=== PATIENT | female | born 1965 | race Caucasian/White ===

== ENCOUNTER → 2016-10-10 | Outpatient (CLI) | payer OTHER ==
--- NOTE | 2016-10-10 10:31 | WWHP ---
DATE OF SERVICE: 10/10/2016 CHIEF COMPLAINT: The patient is here for her routine gynecologic exam. HPI: This is a 51-year-old G9, P4-0-5-4 with an LMP of 06/2016. She states her periods have been infrequent this year and has only had 3 periods this year. She has been having hot flashes, especially during the last 2 months and they tend to occur about every 20 minutes and she can have hot flashes at night as well. She says they are not very big problem at this time. Her is status post vasectomy. PAST MEDICAL HISTORY: Hypothyroidism. MEDICATIONS: Synthroid 75 mcg daily. Allergies to BACTRIM and KEFLEX. PAST SURGICAL HISTORY: Colonoscopy 2012 and cold knife conization of the cervix by myself in 1999. 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 SOCIAL HISTORY: She denies tobacco and drug use and has 0 to 1 alcoholic drink per year. 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 FAMILY HISTORY: Son has childhood colonic polyposis. REVIEW OF SYSTEMS: She denies respiratory, cardiac, or GI problems. Weight has been stable. PHYSICAL EXAM: Blood pressure 123/80. Height 5 feet 2 inches. Weight was refused by the patient. The patient states she weighs 132 pounds. Temperature 97.7, pulse 70. This is a well-developed, well-nourished white female who is alert and oriented x3 in no acute distress. HEENT is within normal limits. NECK: Supple without mass or thyromegaly. CHEST AND LUNGS: Clear to auscultation. HEART: Regular rate and rhythm. Breasts are without mass or discharge. Axillary exam is negative for adenopathy. BACK: Negative for CVA tenderness. ABDOMEN: Soft, nontender, without palpable masses. PELVIC EXAM: Normal external genitalia without significant atrophy. Cervix is consistent with previous conization and is slightly shortened and is somewhat stenotic upon doing the Pap smear. There is no unusual discharge. Vagina appears normal. There is no evidence of prolapse. The uterus is midposition, nongravid size and nontender. There are no palpable adnexal masses or tenderness. Rectovaginal exam is negative for mass or tenderness and is negative for occult blood. EXTREMITIES: Nontender. IMPRESSION: A 51-year-old perimenopausal female with oligomenorrhea and intermittent vasomotor symptoms with normal gynecologic exam. PLAN: 1. Pap smear was performed. 2. Self breast examination was discussed. 3. Mammogram was recommended, but was refused by the patient. She states she will consider doing this in one year. 4. Osteoporosis prevention was discussed. 5. The patient will keep track of her menses and call if she is having problems or if vasomotor symptoms are becoming severe. 6. I have recommended colonoscopy in one year since Dr. Rodriguez had recommended doing the colonoscopy after 5 years. 7. She will return in one year.
== END | disposition home or self-care (01) ==
LOC: WWCWWP 08:34
PROVIDERS: ATTEND Obstetrics & Gynecology
DX: Z01.419 Encounter for gynecological examination (general) (routine) without abnormal findings (principal)

== ENCOUNTER → 2017-09-25 | Outpatient (CLI) | payer OTHER ==
--- NOTE | 2017-09-25 09:27 | WWHP ---
[facility] - HISTORY AND PHYSICAL DATE OF SERVICE: 09/25/2017 CHIEF COMPLAINT: The patient is here for her routine gynecologic exam. HPI: This is a 52-year-old, G9, P4-0-5-4 with an LMP of 08/2016. She states it has been 1 full year of no vaginal bleeding. She does have mild hot flashes, which are not very bothersome and are well controlled. Her is status post vasectomy. She is without gynecologic complaints. PAST MEDICAL HISTORY: Hypothyroidism. MEDICATIONS: Synthroid 75 mcg daily. ALLERGIES: Allergies to BACTRIM and KEFLEX. PAST SURGICAL HISTORY: Colonoscopy 2012 and cold knife conization of the cervix in 1999. 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 She had a cold knife conization of her cervix in 1999 for cervical dysplasia. She has no history of STDs. SOCIAL HISTORY: She denies tobacco, alcohol, and drug use. 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 FAMILY HISTORY: Son has childhood colonic polyposis. REVIEW OF SYSTEMS: She denies respiratory, cardiac or GI problems. PHYSICAL EXAM: Blood pressure 107/76, height 5 feet 2 inches, weight was refused by the patient, temperature 97.5, pulse 74. This is a well-developed, well-nourished, white female, who is alert and oriented x3, in no acute distress. HEENT is within normal limits. NECK: Supple without mass or thyromegaly. CHEST AND LUNGS: Clear to auscultation. HEART: Regular rate and rhythm. Breasts are without mass or discharge. Axillary exam is negative for adenopathy. BACK: Negative for CVA tenderness. ABDOMEN: Soft, nontender, without palpable masses. PELVIC EXAM: Normal external genitalia without significant atrophy. Cervix is consistent with previous conization and is without lesions. The cervix and vagina reveals mild atrophy. There is no evidence of prolapse. The uterus is mid position, nongravid size and nontender. There are no palpable adnexal masses or tenderness. Rectovaginal exam is negative for mass or tenderness and is negative for occult blood. EXTREMITIES: Nontender. IMPRESSION: 1. A 52-year-old menopausal female who has been amenorrheic for 1 full year. 2. Normal gynecologic exam. 3. Mild vasomotor symptoms. PLAN: 1. Pap smear was deferred since she had a normal one last year. 2. Self-breast examination was discussed. 3. Screening mammogram will be done today. 4. Osteoporosis prevention was discussed. 5. She was instructed to call if she has any vaginal bleeding since this will now be considered abnormal after the menopause. 6. She will return in 1 year. MMDIAMONDL / LANDON: [id number] /
--- NOTE | 2017-09-26 13:15 | MM ---
Reason for exam: screening (asymptomatic). History: Patient is postmenopausal and had first child at age 29. Physical Findings: A clinical breast exam by your physician is recommended on an annual basis and results should be correlated with mammographic findings. MG Screening Mammo w CAD Bilateral CC and MLO view(s) were taken. The breast tissue is heterogeneously dense. This may lower the sensitivity of mammography. Focal asymmetry left middle depth upper aspect. ASSESSMENT: Incomplete: need additional imaging evaluation, BI-RAD 0 RECOMMENDATION: Special view mammogram of the left breast. If lesion persists on supplemental views, image directed ultrasound is recommended. [facility] will attempt to contact patient to return for supplemental views and ultrasound if indicated.
== END | disposition home or self-care (01) ==
LOC: WWCWWP 07:57
PROVIDERS: ATTEND Obstetrics & Gynecology
DX: Z12.31 Encounter for screening mammogram for malignant neoplasm of breast (principal)
CPT/HCPCS: 77067

== ENCOUNTER → 2017-10-03 | Outpatient (CLI) | payer OTHER ==
--- NOTE | 2017-10-03 08:45 | MM ---
Reason for exam: additional evaluation requested from abnormal screening. Last mammogram was performed less than 1 month ago. History: Patient is postmenopausal and had first child at age 29. Family history of breast cancer in maternal aunt at age 85. Took hormonal contraceptives. Physical Findings: Nurse did not find any significant physical abnormalities on exam. MG Work Up Mamm w CAD LT Spot compression MLO and ML view(s) were taken of the left breast. Prior study comparison: September 25, 2017, bilateral MG screening mammo w CAD. There is no discrete abnormality. These results were verbally communicated with the patient and result sheet given to the patient on 10/03/17. ASSESSMENT: Benign, BI-RAD 2 RECOMMENDATION: Return to routine screening mammogram schedule for both breasts.
== END | disposition home or self-care (01) ==
LOC: RADMAMWWP 07:47
PROVIDERS: ATTEND Obstetrics & Gynecology
DX: R92.8 Other abnormal and inconclusive findings on diagnostic imaging of breast (principal)
CPT/HCPCS: 77065

== ENCOUNTER → 2018-10-15 | Outpatient (CLI) | payer SELFPAY ==
[2018-10-15 11:45] VITALS: BP 121/76; PULSE 56; RESP 18; TEMP 97.6; BMI 23.8
--- NOTE | 2018-10-15 13:25 | P.HPOB ---
History of Present Illness H&P Date: 10/15/18 Chief Complaint: The patient is here for her routine gynecologic exam. This is a 53-year-old with an LMP of August 2016. The patient states she had a minimal amount of vaginal spotting one day in June 2018. She has not had any other postmenopausal bleeding. She states her hot flashes have been gradually improving and are not very bothersome. 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 She states her issues with urinary urge incontinence is improved by voiding more frequently. Review of Systems The patient's weight has been stable over the last 2 years. She denies res piratory, cardiac, or G.I. problems. Past Medical History Past Medical History: Thyroid Disorder Additional Past Medical History / Comment(s): Hypothyroidism. 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 She has had a cold knife conization of the cervix in 2003 dysplasia. History of Any Multi-Drug Resistant Organisms: None Reported Past Surgical History: No Surgical Hx Reported Additional Past Surgical History / Comment(s): Conization of the cervix in 1999. Colonoscopy 2012. 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 - Past Family History Son(s) Additional Family Medical History / Comment(s): Childhood colonic polyposis. Medications and Allergies Home Medications Medication Instructions Recorded Confirmed Type Magnesium 200 mg PO DAILY 10/15/18 10/15/18 History Thyroid,Pork [[place] Thyroid] 60 mg PO DAILY 10/15/18 10/15/18 History Allergies Allergy/AdvReac Type Severity Reaction Status Date / Time sulfamethoxazole AdvReac Severe renal Unverified 10/15/18 11:37 [From Bactrim] failure trimethoprim [From Bactrim] AdvReac Severe renal Unverified 10/15/18 11:37 failure cephalexin [From Keflex] AdvReac Anaphylaxis Unverified 10/15/18 11:36 Exam Vital Signs Temp Pulse Resp BP Pulse Ox 10/15/18 11:40 97.6 F 56 L 18 121/76 96 Intake and Output 10/14/18 10/15/18 10/15/18 22:59 06:59 14:59 Other: Weight 58.967 kg Height 5'2", weight 130 pounds, BMI 23.8. This is a well-developed well-nourished white female who is alert and oriented times 3 in no acute distress. HEENT: Within normal limits. NECK: Supple without mass or thyromegaly. CHEST AND LUNGS: Clear to auscultation. HEART: Regular rate and rhythm. BREASTS: Are without mass or discharge. AXILLARY EXAM: Negative for adenopathy. BACK: Negative for CVA tenderness. ABDOMEN: Soft, nontender, without palpable masses. PELVIC EXAM: Normal external genitalia with minimal atrophy. Cervix and vagina appear normal with mild atrophy. The service is slightly stenotic. There is no unusual discharge. There is no evidence of prolapse. The uterus is midposition, nongravid size and nontender. There are no palpable adnexal masses or tenderness. RECTAL EXAM: rectovaginal exam is negative for mass or tenderness and is negative for occult blood. EXTREMITIES: Nontender. IMPRESSION: 1. 53-year-old menopausal female with normal gynecologic exam. 2. Small brief postmenopausal bleeding in 06/2018. PLAN: 1. Pap smear was performed. 2. Self breast awareness was discussed with the patient. 3. Screening mammogram was recommended. The patient is declining this at this time. She states she would prefer to have it done next year. 4. I have recommended pelvic ultrasound because of the small postmenopausal bleeding. If the endometrial thickness is normal, this will be followed conservatively. She states she will have scheduled at [facility]. She was also instructed to call if she is having recurrent postmenopausal bleeding. 5. I have recommended that she look into a screening colonoscopy since it has been more than 5 years since her last one and because of her son's history of familial polyposis. 6.She was advised to return in one year for her annual well woman exam and PRN.
== END ==
LOC: WWCWWP 11:08
PROVIDERS: ATTEND Obstetrics & Gynecology
DX: Z53.9 Procedure and treatment not carried out, unspecified reason (principal)

== ENCOUNTER → 2020-11-15 | Outpatient (CLI) | payer SELFPAY ==
[2020-11-15 08:01] VITALS: BP 111/75; PULSE 69; RESP 18; TEMP 97.6
--- NOTE | 2020-11-15 08:54 | P.HPOB ---
History of Present Illness H&P Date: 11/15/20 Chief Complaint: The patient is here for routine gynecologic exam. This is a 55-year-old 054 with an LMP of 2017. The patient had one episode of light spotting in 2018 and denies any menopausal bleeding since then. A pelvic ultrasound was recommended after the episode of spotting in 2018, but the patient did not have this done. She is without gynecologic complaints. The patient states she was diagnosed with COVID on 10/21/2020. She states she was not hospitalized, but had a rough time with the Covid. She states she still feels quite weak, feels a bit shaky, and has some difficulty speaking quickly. She had spoken with her primary care physician when she was diagnosed with the Covid, but has not had follow-up with her PCP since then. She is back to work. Review of Systems She has lost about 6 pounds over the past 2 years. She denies respiratory or GI problems. Cardiac: At night she wonders if she notices skipped heartbeats. General: See the HPI. Past Medical History Past Medical History: Thyroid Disorder Additional Past Medical History / Comment(s): Hypothyroidism. 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 She has had a cold knife conization of the cervix in 2003 for dysplasia. History of Any Multi-Drug Resistant Organisms: None Reported Past Surgical History: No Surgical Hx Reported Additional Past Surgical History / Comment(s): Conization of the cervix in 1999. Colonoscopy 2012. 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 - Past Family History Son(s) Additional Family Medical History / Comment(s): Childhood colonic polyposis. Medications and Allergies Home Medications Medication Instructions Recorded Confirmed Type Magnesium 200 mg PO DAILY 10/15/18 11/15/20 History Thyroid,Pork [[place] Thyroid] 60 mg PO DAILY 10/15/18 11/15/20 History Allergies Allergy/AdvReac Type Severity Reaction Status Date / Time sulfamethoxazole AdvReac Severe renal Unverified 11/15/20 07:53 [From Bactrim] failure trimethoprim [From Bactrim] AdvReac Severe renal Unverified 11/15/20 07:53 failure cephalexin [From Keflex] AdvReac Anaphylaxis Unverified 11/15/20 07:53 Exam Vital Signs Temp Pulse Resp BP Pulse Ox 11/15/20 07:54 97.6 F 69 18 111/75 98 Intake and Output 11/14/20 11/15/20 11/15/20 22:59 06:59 14:59 Other: Weight 56.245 kg Height 5 feet 3 inches, weight 124 pounds, BMI 22.0. This is a well-developed well-nourished white female who is alert and oriented times 3 in no acute distress. She seems to be speaking slightly slower than normal, but is speaking in complete sentences and is oriented. HEENT: Within normal limits. NECK: Supple without mass or thyromegaly. CHEST AND LUNGS: Clear to auscultation. HEART: Regular rate and rhythm. BREASTS: Are without mass or discharge. There is slight breast tenderness bilaterally. AXILLARY EXAM: Negative for adenopathy. BACK: Negative for CVA tenderness. ABDOMEN: Soft, nontender, without palpable masses. PELVIC EXAM: Normal external genitalia with mild atrophy. Cervix is consistent with previous conization and minimal atrophy without lesions. Vagina also reveals minimal atrophy without lesions. There is no unusual discharge. There is no evidence of prolapse. The uterus is midposition, nongravid size and nontender. There are no palpable adnexal masses or tenderness. RECTAL EXAM: Rectovaginal exam is negative for mass or tenderness and is negative for occult blood. EXTREMITIES: Nontender. IMPRESSION: 1. 55-year-old menopausal female with normal gynecologic exam. 2. The patient is having nonspecific symptoms including fatigue, slight shaking and slower speech. This may be related to her diagnosis of Covid last month. Other neurologic problems should also be considered. PLAN: 1. Pap smear cotest was performed. 2. Self breast awareness was discussed with the patient. 3. Screening mammogram is due and the order slip was given to the patient for this. 4. We have discussed how she did not have the pelvic ultrasound which had been recommended in 2019 for an episode of spotting in 2018. Since she has not had any more vaginal spotting or bleeding, the bleeding in 2018 probably represented a small amount of perimenopausal bleeding and no further follow-up is necessary if she has not been having any more bleeding. She was instructed to call if she develops any vaginal bleeding. 5. I have strongly recommended that she follow up with her primary care physician as soon as possible because of the nonspecific symptoms she has been experiencing including extreme fatigue, weakness, slight tremor and slow speech following her diagnosis of Covid. She states she will do this. 6. I have recommended screening colonoscopy since it has been about 7 years since her last one and because of her sons history of colonic polyposis. She states she will look into this. 7. She was advised to return in one year for her annual well woman exam.
== END | disposition home or self-care (01) ==
LOC: WWCWWP 07:45
PROVIDERS: ATTEND Obstetrics & Gynecology
DX: Z01.419 Encounter for gynecological examination (general) (routine) without abnormal findings (principal); E03.9 Hypothyroidism, unspecified; R47.89 Other speech disturbances; R53.83 Other fatigue

== ENCOUNTER → 2021-12-13 | Outpatient (CLI) | payer SELFPAY ==
[2021-12-13 09:28] VITALS: BP 99/65; PULSE 50; RESP 18; TEMP 98.5
--- NOTE | 2021-12-13 10:24 | P.HPOB ---
History of Present Illness H&P Date: 12/13/21 Chief Complaint: The patient is here for her routine gynecologic exam. This is a 56-year-old 054 with an LMP of 2017. The patient is without gynecologic complaints and denies any postmenopausal bleeding. Review of Systems She states she lost nearly 30 pounds after having had cold limited in early 2020. She states she has gained most of that weight back. She is down 2 pounds from last year. She denies respiratory, cardiac, or GI problems. She knows certain foods can upset her digestive tract and she typically avoids them. Past Medical History Past Medical History: Thyroid Disorder Additional Past Medical History / Comment(s): Hypothyroidism. 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 She has had a cold knife conization of the cervix in 2003 for dysplasia. History of Any Multi-Drug Resistant Organisms: None Reported Past Surgical History: No Surgical Hx Reported Additional Past Surgical History / Comment(s): Conization of the cervix in 1999. Colonoscopy 2012. 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 - Past Family History Son(s) Additional Family Medical History / Comment(s): Childhood colonic polyposis. Medications and Allergies Home Medications Medication Instructions Recorded Confirmed Type Magnesium 200 mg PO DAILY 10/15/18 12/13/21 History Thyroid,Pork [[place] Thyroid] 60 mg PO DAILY 10/15/18 12/13/21 History Cholecalciferol [Vitamin D3 (25 25 mcg PO DAILY 12/13/21 12/13/21 History Mcg = 1000 Iu)] [place]-3 Fatty Acids/Fish Oil [Fish 1,000 mg PO DAILY 12/13/21 12/13/21 History Oil 1,000 mg Softgel] Turmeric Root Extract [Turmeric] 500 mg PO DAILY 12/13/21 12/13/21 History Zinc 50 mg PO DAILY 12/13/21 12/13/21 History Allergies Allergy/AdvReac Type Severity Reaction Status Date / Time sulfamethoxazole AdvReac Severe renal Unverified 12/13/21 09:21 [From Bactrim] failure trimethoprim [From Bactrim] AdvReac Severe renal Unverified 12/13/21 09:21 failure cephalexin [From Keflex] AdvReac Anaphylaxis Unverified 12/13/21 09:21 Exam Vital Signs Temp Pulse Resp BP Pulse Ox 12/13/21 09:24 98.5 F 50 L 18 99/65 100 Height 5 feet 2 inches, weight 122 pounds, BMI 22. This is a well-developed well-nourished white female who is alert and oriented times 3 in no acute distress. HEENT: Within normal limits. NECK: Supple without mass or thyromegaly. CHEST AND LUNGS: Clear to auscultation. HEART: Regular rate and rhythm. BREASTS: Are without mass or discharge. There is a small mole on the left breast areola at the 2 o'clock position measuring 1 mm. This has a benign appearance. AXILLARY EXAM: Negative for adenopathy. BACK: Negative for CVA tenderness. ABDOMEN: Soft, nontender, without palpable masses. PELVIC EXAM: Normal external genitalia with mild atrophy. Cervix and vagina appear normal with mild atrophy. There is no unusual discharge. There is no evidence of prolapse. The uterus is midposition, nongravid size and nontender. There are no palpable adnexal masses or tenderness. RECTAL EXAM: Rectovaginal exam is negative for mass or tenderness and is negative for occult blood. EXTREMITIES: Nontender. IMPRESSION: 1. 56-year-old menopausal female with normal gynecologic exam. PLAN: 1. Pap smear was deferred since she had a normal Pap smear cotest on 11/15/2020. 2. Self breast awareness was discussed with the patient. We have also discussed symptoms associated with inflammatory breast cancer. 3. Screening mammogram was recommended. The order slip was given to the patient. She states she is planning to do it in February. She has not had one since 2018. I have stressed the importance of doing this at least every 2 years. 4. I recommended screening colonoscopy in the upcoming year since it is been about 9 years since her last one. She states she will look into this through her PCP. 5. Osteoporosis prevention was discussed. I have stressed the importance of adequate calcium, vitamin D and regular exercise. Recommended amounts of calcium and vitamin D were also discussed. 6. She was advised to return in one year for her annual well woman exam.
== END ==
LOC: WWCWWP 09:14
PROVIDERS: ATTEND Obstetrics & Gynecology
DX: Z01.419 Encounter for gynecological examination (general) (routine) without abnormal findings (principal); Z78.0 Asymptomatic menopausal state; E03.9 Hypothyroidism, unspecified; Z88.1 Allergy status to other antibiotic agents; Z88.2 Allergy status to sulfonamides

== ENCOUNTER → 2023-06-14 | Outpatient (CLI) | payer OTHER ==
--- NOTE | 2023-06-14 13:35 | BD ---
EXAMINATION TYPE: Axial Bone Density DATE OF EXAM: 06/14/2023 CLINICAL HISTORY: 58 years old Female. ICD-10 CODE: Z78.0 Post menopausal Height: 62 Weight: 127 FRAX RISK QUESTIONS: Family History (Parent hip fracture): no History of Fracture in Adulthood: yes, lt ankle/foot [id number] 3 times Secondary Osteoporosis: no RISK FACTORS HISTORY OF: Family History of Osteoporosis: no Active: yes Diet low in dairy products/other sources of calcium: no Postmenopausal woman: yes Lost more than 2 inches in height since high school: no Frequent falls: no Poor Health: no MEDICATIONS: Thyroid Medications: yes Which medication: armor 60 How Lon+ years Additional Medications: yes calcium/vit d EXAM MEASUREMENTS: Bone mineral densitometry was performed using the [employer] [place] System. Bone mineral density as measured about the Lumbar spine is: ----- L1-L4(G/cm2): 0.993 T Score Values are as follows: ----- L1: -1.8 ----- L2: -1.9 ----- L3: -1.3 ----- L4: -1.5 ----- L1-L4: -1.6 Z Score Values are as follows: ----- L1: -0.3 ----- L2: -0.5 ----- L3: 0.1 ----- L4: -0.1 ----- L1-L4: -0.1 Bone mineral density baseline Bone mineral density about the R hip (g/cm2): 0.903 Bone mineral density about the L hip (g/cm2): 0.855 T Score values are as follows: -----R Neck: -1.6 -----L Neck: -1.9 -----R Total: -0.8 -----L Total: -1.2 Z Score values are as follows: -----R Neck: -0.2 -----L Neck: -0.5 -----R Total: 0.3 -----L Total: -0.1 Bone mineral density baseline FRAX%s: The graph provided illustrates a 15.2% chance for a major osteoporotic fx and a 1.9% chance f or the hips probability for fx in 10 years time. IMPRESSION: Osteopenia (T Score between -2.5 and -1). There is slightly increased risk of fracture and the patient may be considered for treatment. Re-Screen 2-5 years. NOTE: T-SCORE=SD OF THE YOUNG ADULT MEAN.
--- NOTE | 2023-06-17 08:39 | MM ---
Reason for Exam: Screening (asymptomatic). Last mammogram was performed 5 year(s) and 9 month(s) ago. Patient History: Menarche at age 13. First Full-Term at age 29. Late child-bearing (after 28). Postmenopausal. Patient has history of breast feeding. Hormonal Contraceptives, ending at age 48. Maternal aunt had breast cancer, age 85. Risk Values: Jade 5 year model risk: 1.8%. NCI Lifetime model risk: 9.1%. Prior Study Comparison: 09/25/2017 Bilateral Screening Mammogram, [facility]. 10/03/2017 Left Diagnostic Mammogram, [facility]. Tissue Density: The breast tissue is heterogeneously dense. This may lower the sensitivity of mammography. Findings: Analyzed By CAD. There is no suspicious group of microcalcifications or new suspicious mass in either breast. Overall Assessment: Benign, BI-RAD 2 Management: Screening Mammogram of both breasts in 1 year. . Patient should continue monthly self-breast exams. A clinical breast exam by your physician is recommended on an annual basis. This exam should not preclude additional follow-up of suspicious palpable abnormalities. Note on Jade scores and lifetime risk: 1. A Jade score greater than 3% is considered moderate risk. If this is the case, consider specialist referral to assess eligibility for a risk reducing agent. 2. If overall lifetime risk for the development of breast cancer is 20% or higher, the patient may qualify for future screening with alternating mammogram and breast MRI. Electronically signed and approved by: Tor Philippe M.D. Radiologis
--- NOTE | 2023-06-18 12:39 | P.PN ---
Progress Note - Text Progress Note Date: 06/18/23 OUTPATIENT FOLLOW-UP NOTE TEST(S)/RESULTS: Test results from 06/14/2023 include benign mammogram and bone density test showing osteopenia. METHOD OF NOTIFICATION: The patient was notified by phone on 06/18/2023. PATIENT COMMENTS: The patient does have a history of foot fractures that occurred with a running. She states she has had 3 fractures of the foot. DIAGNOSIS: Osteopenia with foot fractures. This will be considered consistent with osteoporosis given the fractures with activity that normally should not cause bone fractures. DISCUSSION: I have stressed the importance of adequate calcium, vitamin D, and regular exercise. Because of her foot fractures with the osteopenia on the bone density, I feel that she would benefit from medical treatment for osteoporosis. We have discussed the use of Fosamax. We have discussed possible risks including esophageal ulceration and osteonecrosis of the jaw. We have discussed the proper way to take the medication as well as the importance of not being on the medication if she has upcoming draw surgery or dental surgery such as implants or root canal surgery. She would like to consider this medication. Information on osteoporosis and alendronate will be mailed to the patient. I will also mail her an order slip for a serum calcium and creatinine level. If she would like to proceed with the medication, she will have the blood tests drawn and I will call her after receiving these results. She was also instructed to call if she has any questions. PLAN: As above.
== END | disposition home or self-care (01) ==
LOC: RADMAMWWP 07:22
PROVIDERS: ATTEND Obstetrics & Gynecology
DX: Z12.31 Encounter for screening mammogram for malignant neoplasm of breast (principal); M85.89 Other specified disorders of bone density and structure, multiple sites; Z78.0 Asymptomatic menopausal state; Z80.3 Family history of malignant neoplasm of breast
CPT/HCPCS: 77063; 77067; 77080